=== PATIENT | male | born 1950 | race Caucasian/White ===

== ENCOUNTER 2019-08-07 00:30 | Emergency (ER) | payer OTHER, MEDICAID, SELFPAY ==
[~2019-08-07] VITALS: Ht 190.5 cm; Wt 113.4 kg
[2019-08-07 00:35] VITALS: BP 124/100
[2019-08-07] MEDS ORDERED: KETOROLAC 60 MG/2 ML VIAL IM ONE (00:40)
--- NOTE | 2019-08-07 00:45 | NUR ---
COVID SWAB DONE AND TAKEN TO LAB
[2019-08-07 01:06] VITALS: BP 124/100
== END 2019-08-07 01:07 | disposition home or self-care (01) ==
LOC: MED 00:30 → EEVIPCON 00:30 → MED 01:07
DX: U07.1 COVID-19 (principal); I10 Essential (primary) hypertension; F12.10 Cannabis abuse, uncomplicated
CPT/HCPCS: 96372; 99283; J1885; U0003

== ENCOUNTER 2021-06-03 23:55 | Emergency (ER) | payer OTHER, MEDICAID ==
[~2021-06-03] VITALS: Ht 182.9 cm; Wt 110.9 kg
[2021-06-04 00:04] VITALS: BP 119/89
[2021-06-04] MEDS: KETOROLAC 60 MG/2 ML VIAL IM ONE (01:19)
[2021-06-04] MEDS ORDERED: IBUP-2213 PO (02:01)
[2021-06-04 02:10] VITALS: BP 115/75
== END 2021-06-04 02:18 | disposition home or self-care (01) ==
LOC: MED 23:55
DX: S06.9X3A Unspecified intracranial injury with loss of consciousness of 1 hour to 5 hours 59 minutes, initial encounter (principal); Z90.49 Acquired absence of other specified parts of digestive tract; Z88.8 Allergy status to other drugs, medicaments and biological substances; W22.8XXA Striking against or struck by other objects, initial encounter; Y93.89 Activity, other specified; Y92.89 Other specified places as the place of occurrence of the external cause; Y99.8 Other external cause status
CPT/HCPCS: 70450; 96372; 99284; J1885

== ENCOUNTER 2022-05-06 11:01 | Emergency (ER) | payer OTHER, MEDICAID ==
[~2022-05-06] VITALS: Ht 182.9 cm; Wt 109.3 kg
[~2022-05-06 11:01] MED LIST: IBUP-2213 PO
--- NOTE | 2022-05-06 11:04 | NUR ---
CALLED TO TRIAGE NO RESPONSE
[2022-05-06 11:14] VITALS: BP 136/90
[2022-05-06] MEDS ORDERED: BACITRACIN OINT 500 UNITS/GM PKT TP ONE (12:30)
[2022-05-06] MEDS ORDERED: NAPR-54 PO (12:35)
[2022-05-06] MEDS ORDERED: BACTO TP (12:35)
[2022-05-06] MEDS ORDERED: CEPH-588 PO (12:35)
--- NOTE | 2022-05-06 13:14 | NUR ---
CALLED FOR WOUND CARE, NOT FOUND
--- NOTE | 2022-05-06 13:15 | NUR ---
PT FOUND OUTSIDE LOBBY
[2022-05-06] MEDS ORDERED: TAMS0.4C96 PO (13:19)
--- NOTE | 2022-05-06 13:20 | NUR ---
non adherent applied to r forearm wound
--- NOTE | 2022-05-06 13:25 | NUR ---
Patient discharged with v/s stable. Written and verbal after care instructions ABOUT ABSCESS given and explained. Patient alert, oriented and verbalized understanding of instructions. Ambulatory with steady gait. All questions addressed prior to discharge. ID band removed. Patient advised to follow up with PMD. Rx of KEFLEX, BACITRACIN,NAPROXEN given. Patient educated on indication of medication including possible reaction and side effects. Opportunity to ask questions provided and answered.
== END 2022-05-06 13:25 | disposition home or self-care (01) ==
LOC: MED 11:01
DX: L03.113 Cellulitis of right upper limb (principal); Z76.0 Encounter for issue of repeat prescription; Z88.8 Allergy status to other drugs, medicaments and biological substances; Z79.899 Other long term (current) drug therapy
CPT/HCPCS: 99283